=== PATIENT | male | born 1950 | race Hispanic/Latino ===

== ENCOUNTER 2020-07-05 12:04 | Inpatient (IN) | payer OTHER ==
[2020-07-05] VITALS (9 sets, daily range): BP systolic 99–179; BP diastolic 70–92
[~2020-07-05] VITALS: Ht 170.2 cm; Wt 74.6 kg
[~2020-07-05 12:04] MED LIST: ASPI-1005 PO; ATOR40TA69 PO; LISI-617 PO; METF-446 PO; METO25 PO
--- NOTE | 2020-07-05 14:27 | NUR ---
Patient arrived to unit with heparin drip left FA 18 gauge, dry heaves without emesis, Skin intact, VS (179/88 HR 69 Temp. 97.9 95% RA Resp 20), provider wants patient on nitro drip patient will be transfering to ICU.
[2020-07-05] MEDS ORDERED: SODIUM CHLORIDE 0.9% 1000ML 1,000 ML IV SCH (14:45)
[2020-07-05] MEDS ORDERED: SODIUM CHLORIDE 0.9% 1000ML 1,000 ML IV ONE (14:46)
[2020-07-05] MEDS ORDERED: ONDANSETRON HCL 4 MG/2 ML VIAL IVP SCH (15:15)
[2020-07-05] MEDS ORDERED: ONDANSETRON HCL 4 MG/2 ML VIAL ONE (15:24)
[2020-07-05] MEDS ORDERED: NITROGLYCERIN 50 MG/D5% WATER 250 BOT IV SCH (15:30)
--- NOTE | 2020-07-05 16:50 | NUR ---
Patient transfered off floor to ICU
[2020-07-05 19:15] LABS: BASOPHILS % (AUTO) 0.2 % (0.0-5.0); EOSINOPHILS % (AUTO) 0.1 % (0.0-8.0); HEMATOCRIT 25.1 % (42-54); LYMPHOCYTES % (AUTO) 12.7 % (21.0-51.0); MEAN CORPUSCULAR HEMOGLOBIN 28.4 pg (27.0-33.0); MEAN CORPUSCULAR HGB CONC 31.9 g/dL (32.0-36.0); MONOCYTES % (AUTO) 4.9 % (3.0-13.0); NEUTROPHILS % (AUTO) 81.5 % (40.0-77.0); PLATELET COUNT (AUTO) 194 K/uL (130-400); RED BLOOD CELL COUNT(AUTO) 2.82 MIL/uL (4.50-6.20); RED CELL DISTRIBUTION WIDTH 15.4 % (11.0-15.5); WHITE BLOOD COUNT (AUTO) 10.3 K/uL (4.8-10.8)
[2020-07-05 19:23] LABS: CREATININE 4.2 mg/dL (0.5-1.5); POTASSIUM 5.7 mmol/L (3.5-5.1)
[2020-07-05 19:27] LABS: BILIRUBIN,TOTAL 0.3 mg/dL (0.2-1.0); MAGNESIUM 1.9 mg/dL (1.80-2.40); TOTAL PROTEIN, SERUM 6.7 g/dL (6.0-8.3)
[2020-07-05] MEDS ORDERED: METO-408 PO (19:57)
[2020-07-05] MEDS ORDERED: LISI-617 PO (19:57)
[2020-07-05] MEDS ORDERED: METF-444 PO (19:57)
[2020-07-05] MEDS ORDERED: CLOPIDOGREL BISULFATE 300 MG TAB PO SCH (20:00)
[2020-07-05] MEDS: METOPROLOL TARTRATE 25 MG TAB PO SCH (20:32)
[2020-07-05] MEDS: ATORVASTATIN CALCIUM 10 MG TABLET PO SCH (20:33)
[2020-07-05] MEDS ORDERED: SODIUM POLYSTYRENE SULFONATE 15 GM/60 ML ML PO SCH (22:55)
[2020-07-06] VITALS (16 sets, daily range): BP systolic 119–183; BP diastolic 61–86
[2020-07-06 03:43] LABS: BASOPHILS % (AUTO) 0.4 % (0.0-5.0); EOSINOPHILS % (AUTO) 0.7 % (0.0-8.0); HEMATOCRIT 24.4 % (42-54); MEAN CORPUSCULAR HEMOGLOBIN 27.9 pg (27.0-33.0); MEAN CORPUSCULAR HGB CONC 31.6 g/dL (32.0-36.0); MEAN CORPUSCULAR VOLUME 88.4 fL (79-99); MONOCYTES % (AUTO) 6.1 % (3.0-13.0); NEUTROPHILS % (AUTO) 80.3 % (40.0-77.0); PLATELET COUNT (AUTO) 191 K/uL (130-400); RED BLOOD CELL COUNT(AUTO) 2.76 MIL/uL (4.50-6.20); RED CELL DISTRIBUTION WIDTH 15.6 % (11.0-15.5); WHITE BLOOD COUNT (AUTO) 10.4 K/uL (4.8-10.8)
[2020-07-06 03:56] LABS: INR 1.03 (0.85-1.15); PROTHROMBIN TIME 11.1 SEC (9.6-11.6)
[2020-07-06 04:01] LABS: ALBUMIN 3.1 g/dL (3.5-5.0); BILIRUBIN,TOTAL 0.4 mg/dL (0.2-1.0); CREATININE 4.2 mg/dL (0.5-1.5); MAGNESIUM 1.9 mg/dL (1.80-2.40); TOTAL PROTEIN, SERUM 6.8 g/dL (6.0-8.3)
[2020-07-06] MEDS: HEPARIN 25000 UNITS/250 ML D5W 250 ML IV SCH ×2 (05:09→15:05)
[2020-07-06] MEDS: METOPROLOL TARTRATE 25 MG TAB PO SCH ×2 (08:13→20:43)
[2020-07-06] MEDS: ASPIRIN 81MG TAB.CHEW PO SCH (08:13)
[2020-07-06] MEDS: CLOPIDOGREL BISULFATE 75 MG TAB PO SCH (08:13)
[2020-07-06 08:48] LABS: CREATININE 4.1 mg/dL (0.5-1.5); POTASSIUM 4.6 mmol/L (3.5-5.1)
[2020-07-06] MEDS ORDERED: CLOPIDOGREL BISULFATE 300 MG TAB PO SCH (09:00)
[2020-07-06] MEDS ORDERED: ISOSORBIDE MONO 30MG TAB SR PO ONE (10:31)
[2020-07-06] MEDS ORDERED: ONDANSETRON HCL 4 MG/2 ML VIAL IVP PRN (11:00)
[2020-07-06] MEDS: ISOSORBIDE MONO 30MG TAB SR PO SCH ×2 (11:02→20:43)
--- NOTE | 2020-07-06 11:39 | NUR ---
cm note met with patient and states resides at home alone, is independent with adls/ambulation. no dme, provides with community resources/ med rx assist program, pt verbalizes understanding. and states will followup with md, [facility] Addendum: 07/06/20 at 1143 by REMINGTON BARTH CM Amended: Links added.
[2020-07-06] MEDS: PANTOPRAZOLE SODIUM 40 MG TABLET.DR PO SCH (12:56)
--- NOTE | 2020-07-06 13:22 | NUR ---
12:15 Initial contact Initial contact with pt in 408. Pt transferred from ICU, report received from Jose THORNTON. Pt transferred to hospital bed safely. AAOX4, airway patent breathing even and unlabored on Room air. No complaints at this time. Pt denies chest pain or sob. VS stable. IV sites noted to Left forearm #18 with heparin infusing at 13.99u/kg/min @ 10.44ml/min. IV site to right forearm patent. Orders reviewed. Informed pt plan of care. Pt verbalizes understanding. Pt placed on telemetry box Addendum: 07/06/20 at 1705 by MEHNAZ PHILIP RN RN CORRECTION 13.99u/kg/hour
[2020-07-06 14:16] LABS: INR 1.03 (0.85-1.15); PARTIAL THROMBOPLASTIN TIME 44.8 SEC (26.3-35.5); PROTHROMBIN TIME 11.1 SEC (9.6-11.6)
[2020-07-06] MEDS: HYDRALAZINE HCL 25 MG TABLET PO SCH ×2 (14:55→20:43)
--- NOTE | 2020-07-06 16:21 | NUR ---
Nephrology consult made aware
--- NOTE | 2020-07-06 18:46 | NUR ---
Hospitalist Dr Trejo made aware of pts need to be seen. Reports will come assess pt. Verbal orders received and entered. Reported pending auger supervisor consult
[2020-07-06] MEDS ORDERED: FUROSEMIDE 10 MG/ML 4ML VIAL IV SCH (18:55)
[2020-07-06] MEDS: SODIUM CHLORIDE 0.9% 1000ML 1,000 ML IV SCH (18:56)
[2020-07-06] MEDS: ATORVASTATIN CALCIUM 10 MG TABLET PO SCH (20:43)
[2020-07-06 21:13] LABS: INR 1.03 (0.85-1.15); PARTIAL THROMBOPLASTIN TIME 64.5 SEC (26.3-35.5); PROTHROMBIN TIME 11.1 SEC (9.6-11.6)
[2020-07-07 03:30] VITALS: BP 174/74
[2020-07-07 03:40] VITALS: BP 156/72
[2020-07-07 04:31] LABS: HEMATOCRIT 21.3 % (42-54); MEAN CORPUSCULAR HEMOGLOBIN 28.2 pg (27.0-33.0); MEAN CORPUSCULAR HGB CONC 31.9 g/dL (32.0-36.0); MEAN CORPUSCULAR VOLUME 88.4 fL (79-99); PLATELET COUNT (AUTO) 181 K/uL (130-400); RED BLOOD CELL COUNT(AUTO) 2.41 MIL/uL (4.50-6.20); RED CELL DISTRIBUTION WIDTH 15.6 % (11.0-15.5); WHITE BLOOD COUNT (AUTO) 8.5 K/uL (4.8-10.8)
[2020-07-07 04:39] LABS: CREATININE 4.1 mg/dL (0.5-1.5); MAGNESIUM 1.8 mg/dL (1.80-2.40); POTASSIUM 3.9 mmol/L (3.5-5.1)
--- NOTE | 2020-07-07 04:42 | NUR ---
Critical Labs Pt H&H came back low. Hemaglobin 6.8 and Hematocrit 21. The MD was called and made aware. He asked for a repeat of labs & a type and screen for 2 units of PRBCs.
[2020-07-07 04:47] LABS: % IRON SATURATION 8.8 % (30-44)
[2020-07-07 05:00] LABS: EOSINOPHILS % (MANUAL) 1 % (1-6); LYMPHOCYTES % (MANUAL) 11 % (22-44); SEGMENTED NEUTROPHILS % 88 % (40-70)
[2020-07-07 05:01] LABS: MAN.DIFF COMMENT-IMPRESSION MANUAL DIFFERENTIAL; PLATELET MORPHOLOGY COMMENT ADEQUATE
[2020-07-07] MEDS: PANTOPRAZOLE SODIUM 40 MG TABLET.DR PO SCH ×2 (05:37→08:27)
[2020-07-07 05:58] VITALS: BP 160/75
[2020-07-07 07:34] VITALS: BP 162/72
[2020-07-07] MEDS: HYDRALAZINE HCL 25 MG TABLET PO SCH ×2 (08:27→15:50)
[2020-07-07] MEDS: CLOPIDOGREL BISULFATE 75 MG TAB PO SCH (08:27)
[2020-07-07] MEDS: METOPROLOL TARTRATE 25 MG TAB PO SCH (08:27)
[2020-07-07] MEDS: ISOSORBIDE MONO 30MG TAB SR PO SCH ×2 (08:28)
[2020-07-07] MEDS: ASPIRIN 81MG TAB.CHEW PO SCH (08:28)
[2020-07-07 09:22] LABS: HEMATOCRIT 21.6 % (42-54)
--- NOTE | 2020-07-07 09:30 | NUR ---
ON HEPARIN DRIP AT THIS TIME PER PTT 66.3 .. ON , RATE 12.6ML/HR.RECHECK HGB 6.9 WILL INFORM
[2020-07-07 09:40] LABS: INR 1.05 (0.85-1.15); PARTIAL THROMBOPLASTIN TIME 66.3 SEC (26.3-35.5); PROTHROMBIN TIME 11.3 SEC (9.6-11.6)
--- NOTE | 2020-07-07 10:30 | NUR ---
INFORMED MD ON HGB 6.9 AD PATIENT REFUSING BLOOD TRANSFUSION. PER MD SPOKE WITH DR FRANCISCO ,DECISION TO STOP HEPRIN DRIP. HEPARIN DRIP STOPPED. MD EXPLAINED TO PATIENT ON ADVANCE DIRECTIVEDS FOR CODE STATUS .PER PATIENT DOES NOT WANT ANY CPR OR INTUBATION IF HEART STOPS .
[2020-07-07 10:38] VITALS: BP 131/54
[2020-07-07] MEDS: SODIUM CHLORIDE 0.9% 1000ML 1,000 ML IV SCH (14:56)
[2020-07-07] MEDS ORDERED: EPOETIN ALFA 10,000 UNIT/ML VIAL SQ SCH (15:15)
[2020-07-07 15:29] VITALS: BP 147/65
[2020-07-07] MEDS ORDERED: IRON SUCROSE COMPLEX 100 MG in SODIUM CHLORIDE 0.9% 50 ML IV SCH (15:30)
[2020-07-07] MEDS ORDERED: COMPOUND IV MISC 1 EACH IVSOLN MISC PRN ×2 (15:30)
--- NOTE | 2020-07-07 17:47 | NUR ---
PATIENT UPSET STATED WANTS TO LEAVE AGAINST MEDICAL ADVISE . EXPLAINED ON RISKS OF HIM DYING WITHOUT TREATMENT AND DOCTOR ,STAFF AND HOSPITAL NOT RESPONSIBLE IF ANYTHING WOULD TO HAPPEN . PATIENT CONT TO STATE HE WILL SIGN AND CALL HIS OWN TAXI . MADE AWARE .
[2020-07-08] MEDS ORDERED: IRON SUCROSE COMPLEX 100 MG in SODIUM CHLORIDE 0.9% 50 ML IV SCH (09:00)
== END 2020-07-07 18:30 | disposition left against medical advice (07) | DRG 281 ==
LOC: 4AH 14:22 → DAHIP 17:52 → 4BH 07-06 12:08
PROVIDERS: ADMIT Internal Medicine; ATTEND Internal Medicine
DX: I21.4 Non-ST elevation (NSTEMI) myocardial infarction (principal); I47.1 Supraventricular tachycardia; N17.9 Acute kidney failure, unspecified; N18.5 Chronic kidney disease, stage 5; I13.2 Hypertensive heart and chronic kidney disease with heart failure and with stage 5 chronic kidney disease, or end stage renal disease; Z66 Do not resuscitate; E11.65 Type 2 diabetes mellitus with hyperglycemia; E11.22 Type 2 diabetes mellitus with diabetic chronic kidney disease; D63.8 Anemia in other chronic diseases classified elsewhere; E11.51 Type 2 diabetes mellitus with diabetic peripheral angiopathy without gangrene; E78.5 Hyperlipidemia, unspecified; M48.061 Spinal stenosis, lumbar region without neurogenic claudication; I50.9 Heart failure, unspecified; I25.5 Ischemic cardiomyopathy; I25.10 Atherosclerotic heart disease of native coronary artery without angina pectoris; E11.21 Type 2 diabetes mellitus with diabetic nephropathy; Z53.29 Procedure and treatment not carried out because of patient's decision for other reasons; I25.2 Old myocardial infarction; Z95.1 Presence of aortocoronary bypass graft; Z91.19 Patient's noncompliance with other medical treatment and regimen; Z91.14 Patient's other noncompliance with medication regimen; Z79.84 Long term (current) use of oral hypoglycemic drugs; Z79.899 Other long term (current) drug therapy; Z79.82 Long term (current) use of aspirin
CPT/HCPCS: 36415; 80048; 80053; 82948; 83540; 83550; 83735; 84132; 84484; 85014; 85018; 85025; 85610; 85730; 86850; 86900; 86901; 86923; 93005; 93306; 93356; G0378; J0885; J1644; J1756; J1940; J2405; J3490; J7030